=== PATIENT | male | born 1960 | race Two or more races ===

== ENCOUNTER 2022-11-08 16:36 | Emergency (ER) | payer MEDICAID ==
[~2022-11-08] VITALS: Ht 170.2 cm; Wt 69.0 kg
[2022-11-08 16:44] VITALS: BP 130/76
[2022-11-08] MEDS ORDERED: metformin (16:44)
[2022-11-08 19:37] LABS: BASOPHILS % 0.6 % (0.0-2.0); EOSINOPHILS % 0.5 % (0.0-5.0); HEMOGLOBIN. 13.4 g/dL (14.0-18.0); LYMPHOCYTES % 16.1 % (20.0-50.0); MEAN CORPUSCULAR HEMOGLOBIN 26.6 pg (28.0-32.0); MEAN CORPUSCULAR VOLUME 81.2 fL (80.0-94.0); MEAN PLATELET VOLUME 10.6 fl (7.4-10.4); MONOCYTES % 5.7 % (2.0-8.0); NEUTROPHILS % 77.1 % (40.0-76.0); PLATELET 91 x1000/uL (130-400); RED BLOOD CELL COUNT 5.05 mill/uL (4.7-6.1); RED CELL DISTRIBUTION WIDTH 15.1 % (11.6-14.6)
[2022-11-08 19:50] LABS: CHLORIDE 100 mEq/L (98-107)
[2022-11-08 19:55] LABS: INR 1.1; PROTHROMBIN TIME 11.6 sec (9.6-11.0)
[2022-11-08 20:02] LABS: BETA HYDROXYBUTYRATE 0.3 mMol/L (0.0-0.3)
[2022-11-08] MEDS ORDERED: INSULIN REGULAR (HUMULIN R) 300UNITS/3ML VIAL SUBCUT ONE (21:00)
== END 2022-11-08 21:25 | disposition home or self-care (01) ==
LOC: ER 16:36
DX: E11.65 Type 2 diabetes mellitus with hyperglycemia (principal); R41.0 Disorientation, unspecified; R07.89 Other chest pain
CPT/HCPCS: 36415; 80053; 82010; 82962; 84484; 85025; 85610; 86850; 86900; 86901; 93005; 96372; 99284; J1815